=== PATIENT | female | born 1955 | race Caucasian/White ===

== ENCOUNTER → 2017-03-21 | Day surgery (SDC) | payer OTHER ==
[~2017-03-21] MED LIST: ACETAMINOPHEN 1000 MG/100 ML 100 ML IV ONE; ACETAMINOPHEN/HYDROcodone 325 MG/5 MG TAB ONE; ANAS1TAB PO; ASPI81TA82 PO; ATOR10TA PO; BACITRACIN IM FOR SOLN 50,000 UNIT VIAL ONE; BUPIVACAINE/EPINEPHRINE 0.25% 50 ML VIAL ONE; DIGO0.12 PO; FURO20TA PO; GENTAMICIN SULFATE 80 MG/2 ML VIAL ONE; KETOROLAC TROMETHAMINE 30 MG/ML (IVP) VIAL IV PUSH ONE; LACTATED RINGER'S 1000 ML INJ 1,000 ML ONE; LIDOCAINE 1%/EPINEPHrine 1:100,000 SOLN 50 ML VIAL ONE; LISI-360 PO; MEPERIDINE HCL 50 MG/ML VIAL ONE; METO25 PO; MIDAZOLAM HCL 2 MG/2 ML VIAL ONE; MORPHINE SULFATE 4 MG/ML INJ ONE; ONDANSETRON HCL 4 MG/2 ML VIAL IV PUSH ONE; PROPOFOL 200 MG/20 ML AMP IV ONE; SODIUM CHLORIDE 0.9% 20 ML VIAL ONE; SPIR25TA PO; ceFAZolin INJ 1,000 MG VIAL ONE
--- NOTE | 2017-03-21 09:53 | TN ---
cc: JACOB FELICIANO M.D. DATE OF SURGERY 03/21/2017 PREOPERATIVE DIAGNOSIS Status post mastectomy with delayed reconstruction. POSTOPERATIVE DIAGNOSIS Status post mastectomy with delayed reconstruction. PROCEDURE 1. Removal of bilateral capsules, full capsulectomies bilateral where the patient had a chronic seroma. 2. Breast reconstruction utilizing a tissue marketing database analyst, [place], along with acellular dermal matrix. SURGEON Jacob Feliciano MD, FACS. ANESTHESIA LMA general. I also utilized 60 cc of a combination of 1% lidocaine with epinephrine mixed with 0.25% Marcaine in a 2:1 ratio. DRAINS Four drains, two on each side. COMPLICATIONS None. DETAILS OF PROCEDURE She was properly consented, marked and properly anesthetized. The skin was sterilized with Betadine solution and sterile draping applied. Local anesthetic was infiltrated. The right breast was approached initially through the inframammary previous incision. I proceeded and performed the removal of a significant seroma. This was drained and cultured and the capsule was removed. This seroma was in a supra-pectoral level. After assuring that I proceeded and performed the rearrangements of the landmarks in which the anterior axillary line was brought out with multiple layers of some 0-silk along with the inframammary fold utilizing the same suture material. Elevation of the pectoralis major muscle was carried out and at the base I sutured a 6 x 16 AlloDerm. The tissue marketing database analyst was introduced and the full pocket was closed. Before closing I expanded the tissue marketing database analyst to 200 cc on the right side. Two drains were brought out and secured in place, a 10 mm EDWARD in the subcutaneous level and a 7 mm EDWARD in the subpectoral level. The wound was closed in multiple 2-0 Monocryl suture layers at Marino's fascia, dermis and subcu. The contralateral side was approached in a similar manner. Through an inframammary incision the capsule was also found. The seroma was drained and cultured. The capsule was fully removed without any further problems. The left capsule and the right capsule were sent to pathology for further permanent analysis. I proceeded and performed at this point capsulorrhaphies, lateral inferior with multiple layers of 0 silk down to the anterior axillary line and inframammary fold and reinforced that with Marino's fascia. With this I proceeded and performed elevation of the pectoralis major muscle and at the base of the pectoralis major muscle I proceeded and performed suturing of a 6 x 16 acellular dermal matrix. The tissue marketing database analyst was introduced. I also brought two drains through a separate stab wound, a 7 mm EDWARD in the retropectoral plane and a 10 mm EDWARD in the subcutaneous plane. The tissue marketing database analyst was expanded to 200 cc after the full closure of the pocket was done with ADM down to the inframammary fold. Again, 200 cc were applied on the left tissue marketing database analyst as well and the wounds were closed in multiple layers of 2-0 Monocryl suture in Marino's fascia, dermis and subcu. Each drain received a Biopatch. It should be mentioned that from the beginning Tegaderm was utilized to isolate the nipple-areolar complex and before inserting the tissue marketing database analyst I proceeded and isolated the skin as well. Absorbent compression dressings were applied. Good viability of the tissue was noted at the end of the case. The patient was awakened, extubated in the operating room and transferred back to the post-anesthesia care unit in stable condition. No complications were appreciated. The patient tolerated the procedure fairly well. MD NANI Delgado/CHANTELL /9:27 AM /9:34 AM MTDD
== END | disposition home or self-care (01) ==
LOC: ESDC 06:04
PROVIDERS: ATTEND Plastic Surgery
DX: Z85.3 Personal history of malignant neoplasm of breast (principal); Z90.13 Acquired absence of bilateral breasts and nipples; M96.842 Postprocedural seroma of a musculoskeletal structure following a musculoskeletal system procedure
CPT/HCPCS: 00402; 15777; 19357; 19371; 87070; 87205; 88305; C1789; J0131; J0690; J1580; J1885; J2175; J2250; J2270; J2405; J3010; J7120; Q4116; 88307